=== PATIENT | female | born 1955 | race Caucasian/White ===

== ENCOUNTER 2019-01-18 10:28 | Outpatient (CLI) | payer MEDICARE ==
--- NOTE | 2019-01-18 11:30 | ULT ---
ULTRASOUND ABDOMEN: HISTORY: Epigastric pain FINDINGS: There is a new 1.6 cm cyst in the right lobe of the liver. No intrahepatic dilatation is seen. The sp london is normal measuring 10.5 cm in length. Shadowing calculi are seen in the gallbladder without gallbladder wall thickening or pericholecystic fluid. The common duct measures 5 images in diameter. The pancreas is not well visualized due to overlying bowel gas. The kidneys and visualized portions o f the aorta and IVC are normal. No free fluid is seen in the abdomen. IMPRESSION: 1. Hepatic cyst 2. Cholelithiasis
== END 2019-01-18 10:29 | disposition home or self-care (01) ==
LOC: BICULT 10:28
PROVIDERS: ATTEND Family Medicine
DX: R10.9 Unspecified abdominal pain (principal); K80.20 Calculus of gallbladder without cholecystitis without obstruction; K76.89 Other specified diseases of liver
CPT/HCPCS: 76700

== ENCOUNTER 2019-04-16 09:20 | Outpatient (CLI) | payer MEDICARE ==
[2019-04-16 10:38] LABS: #Basophils 0.1 thou/uL (0.0-0.2); #Eosinphils 0.3 thou/uL (0.0-0.7); #Lymphocytes 2.5 thou/uL (1.20-3.40); #Monocytes 0.7 thou/uL (0.11-0.59); #Neutrophils 3.6 thou/uL (1.40-6.50); %Basophils 1.3 % (0.0-1.0); %Eosinophils 3.7 % (0.0-10.0); %Monocytes 9.5 % (0.0-10.0); %Neutrophils 50.5 % (42.0-75.0); Hemoglobin 13.3 g/dL (12.0-16.0); Mean Corpuscular HGB CONC 33.2 g/dL (32.0-36.0); Mean Corpuscular Hemoglobin 28.8 pg (27.0-31.0); Mean Corpuscular Volume 86.5 fL (78.0-98.0); Mean Platelet Volume 6.5 fL (7.4-10.4); Platelet Count 368 thou/uL (130-400); RBC Distribution Width 12.3 % (11.5-14.5); Red Blood Cell (RBC) Count 4.63 mill/uL (4.20-5.40)
[2019-04-16 11:00] LABS: ALT (SGPT) 15 U/L (8-55); AST (SGOT) 15 U/L (5-34); Albumin 4.4 g/dL (3.4-4.8); Alkaline Phosphatase 115 U/L (40-150); Anion Gap 13 mmol/L (10-20); BUN (Urea Nitrogen) 11 mg/dL (9.8-20.1); Bilirubin, Total 0.3 mg/dL (0.2-1.2); Calc. Creatinine Clearance 0 mL/min (70-130); Calcium 10.2 mg/dL (7.8-10.44); Carbon Dioxide 25 mmol/L (23-31); Chloride 106 mmol/L (98-107); Estimated GFR-MDRD 85; Globulin 3.1 g/dL (2.4-3.5); Glucose 106 mg/dL (80-115); Potassium 4.7 mmol/L (3.5-5.1); Protein, Total 7.5 g/dL (6.0-8.3); Sodium 139 mmol/L (136-145)
[2019-04-16 11:01] LABS: ALT (SGPT) 16 U/L (8-55); AST (SGOT) 15 U/L (5-34); Albumin 4.3 g/dL (3.4-4.8); Alkaline Phosphatase 115 U/L (40-150); Bilirubin, Direct 0.2 mg/dL (0.1-0.3); Bilirubin, Total 0.3 mg/dL (0.2-1.2); Protein, Total 7.4 g/dL (6.0-8.3)
== END 2019-04-16 09:21 | disposition home or self-care (01) ==
LOC: LABBT 09:20
PROVIDERS: ATTEND Surgery
DX: Z01.812 Encounter for preprocedural laboratory examination (principal); K80.20 Calculus of gallbladder without cholecystitis without obstruction
CPT/HCPCS: 80053; 85025

== ENCOUNTER 2019-05-17 09:44 | Outpatient (CLI) | payer MEDICARE ==
--- NOTE | 2019-05-17 10:18 | MMO ---
Bilateral MAMMO Bilat Screen [facility]. CLINICAL HISTORY: Patient is 64 years old and is seen for screening. The patient has no family history of breast cancer. The patient has no personal history of cancer. VIEWS: The views performed were: bilateral craniocaudal with tomosynthesis and bilateral mediolateral oblique with tomosynthesis. FILMS COMPARED: The present examination has been compared to a prior imaging study performed at [facility] on 03/09/2016. This study has been interpreted with the assistance of computer-aided detection. MAMMOGRAM FINDINGS: There are scattered fibroglandular densities. There are no suspicious masses, suspicious calcifications, or new areas of architectural distortion. IMPRESSION: THERE IS NO MAMMOGRAPHIC EVIDENCE OF MALIGNANCY. A ROUTINE FOLLOW-UP MAMMOGRAM IN 1 YEAR IS RECOMMENDED. THE RESULTS OF THIS EXAM WERE SENT TO THE PATIENT. ACR BI-RADS Category 1 - Negative MAMMOGRAPHY NOTE: 1. A negative mammogram report should not delay a biopsy if a dominant of clinically suspicious mass is present. 2. Approximately 10% to 15% of breast cancers are not detected by mammography. 3. Adenosis and dense breasts may obscure an underlying neoplasm. Reported by: MOE YOST MD Electonically Signed: [id number]
== END 2019-05-17 09:45 | disposition home or self-care (01) ==
LOC: BICMAMMO 09:44
PROVIDERS: ATTEND Family Medicine
DX: Z12.31 Encounter for screening mammogram for malignant neoplasm of breast (principal)
CPT/HCPCS: 77063; 77067

== ENCOUNTER 2019-10-17 06:46 | Outpatient (CLI) | payer MEDICARE ==
[2019-10-17 15:21] LABS: Hemoglobin 13.8 g/dL (12.0-16.0); Mean Corpuscular HGB CONC 32.9 g/dL (32.0-36.0); Mean Corpuscular Hemoglobin 28.9 pg (27.0-31.0); Mean Corpuscular Volume 87.7 fL (78.0-98.0); Mean Platelet Volume 6.6 fL (7.4-10.4); Platelet Count 367 thou/uL (130-400); RBC Distribution Width 12.5 % (11.5-14.5); Red Blood Cell (RBC) Count 4.79 mill/uL (4.20-5.40); White Blood Cell (WBC) Count 10.2 thou/uL (4.8-10.8)
[2019-10-17 15:25] LABS: Bacteria/HPF None Seen HPF (None Seen); Bilirubin Negative (Negative); Blood, Urine 2+ (Negative); Clarity Clear (Clear); Glucose, Urine (Dipstick) Normal (Negative); Leukocyte 75 Leu/uL (Negative); Nitrite Negative (Negative); Protein, Urine (Dipstick) Negative (Neg-Trace); RBC/HPF 0-3 HPF (0-3); Squamous Epithelial 0-3 HPF (0-3); Urobilinogen Normal mg/dL (Less than 2); WBC/HPF 0-3 HPF (0-3)
[2019-10-17 15:27] LABS: INR-International Normal Ratio 1.1; Prothrombin Time 14.2 SEC (12.0-14.7)
[2019-10-17 15:28] LABS: PTT 32.2 SEC (22.9-36.1)
[2019-10-17 15:47] LABS: Anion Gap 16 mmol/L (10-20); BUN (Urea Nitrogen) 10 mg/dL (9.8-20.1); Calc. Creatinine Clearance 0 mL/min (70-130); Carbon Dioxide 21 mmol/L (23-31); Chloride 107 mmol/L (98-107); Estimated GFR-MDRD Greater than 90; Glucose 92 mg/dL (80-115); Potassium 4.2 mmol/L (3.5-5.1); Sodium 140 mmol/L (136-145)
--- NOTE | 2019-10-18 16:53 | EKG ---
Test Reason : Blood Pressure : / mmHG Vent. Rate : 079 BPM Atrial Rate : 079 BPM P-R Int : 154 ms QRS Dur : 082 ms QT Int : 400 ms P-R-T Axes : 055 056 029 degrees QTc Int : 458 ms Normal sinus rhythm Anterior infarct , age undetermined cannot be excluded Abnormal ECG Confirmed by JOHANNA ROSARIO ([id number]) on 10/18/2019 4:53:32 PM Referred By: ISHAAN Confirmed By:JOHANNA ROSARIO
== END 2019-10-17 06:47 | disposition home or self-care (01) ==
LOC: LABBT 06:46
PROVIDERS: ATTEND Urology
DX: Z01.818 Encounter for other preprocedural examination (principal); C67.0 Malignant neoplasm of trigone of bladder
CPT/HCPCS: 80048; 81001; 85027; 85610; 85730; 87086; 93005; 93010

== ENCOUNTER 2019-10-25 06:17 | Day surgery (SDC) | payer MEDICARE ==
[2019-10-17 14:13] VITALS: BMI 38.2
[2019-10-25] MEDS ORDERED: Levofloxacin 500 mg/D5W 100 ml Premix Bag ONE (06:52)
[2019-10-25] MEDS ORDERED: Midazolam HCl 2 mg/2 ml Vial ONE (07:20)
[2019-10-25] MEDS ORDERED: Fentanyl 100 MCG/2 ML VIAL ONE (07:20)
[2019-10-25] MEDS ORDERED: Iothalamate Meglumine 60% 50 ML VIAL FS ONE (07:21)
[2019-10-25] MEDS ORDERED: B & O ONE (07:23)
[2019-10-25] MEDS ORDERED: mitoMYcin 40 MG in Sterile Water 20 ML IV SCH (08:00)
[2019-10-25] MEDS ORDERED: SUGAMMADEX SODIUM 200 MG/2 ML VIAL ONE (09:09)
--- NOTE | 2019-10-25 09:37 | OP ---
DATE OF PROCEDURE: 10/25/2019 SERVICE: Urology. PREOPERATIVE DIAGNOSIS: Bladder cancer. POSTOPERATIVE DIAGNOSIS: Bladder cancer. PROCEDURES PERFORMED: 1. Transurethral resection of bladder tumor with right ureteral stent placement, 6 x 24 double-J stent. 2. Postoperative mitomycin-C placement. INDICATIONS FOR PROCEDURE: Ms. Meredith is a 64-year-old white female who initially presented with hematuria. Cystoscopy demonstrated a mass within the bladder, which was directly over the right ureteral orifice, which could not be visualized on outpatient cystoscopy. I recommended resection of the tumor and possible right ureteral stent placement. All risks and benefits discussed and she has agreed to proceed forward. DESCRIPTION OF PROCEDURE: After identification of armband and verification of consent, the patient was brought back to the operating room where she underwent general anesthesia with endotracheal intubation and full paralysis. She was then placed in dorsal lithotomy position and prepped and draped in the usual sterile fashion. After appropriate time-out, a lubricated 26[place]izen [place] resectoscope sheath with visual obturator was placed with ease into the urethra. The tumor was visualized and identification of the ureteral orifice was still not possible. The visual obturator was switched out for the bipolar bladder resectoscope loop and resection was started on the bladder tumor at the top and resected down until the entire tumor was resected. Upon completion of resection, the ureter was identified and was noted to be partially resected on the anterior aspect. Therefore, a ureteral stent would be required in this case. Hemostasis was performed on all areas except directly next to the ureteral orifice to avoid cautery and scarring. Once the tumor base looked very good and was completely dry without any evidence of bleeding, the tumor specimens were removed and the resectoscope was removed as well with placement of a 22-Citizen [place] rigid cystoscope. Using a Sensor wire, the ureteral orifice was identified and cannulated with the floppy tip of the Sensor wire up to the level of the renal pelvis. A 6 x 24 double-J stent with no string attached was advanced over the Sensor wire up to the level of renal pelvis and the wire removed, leaving a good curl in the kidney and a good curl in the bladder. The bladder was then emptied and the cystoscope was removed. An 18-Citizen [place] Wei catheter was then placed in the patient's bladder with 10 mL of sterile water into the balloon, 40 mg of mitomycin-C and 20 mL of H2O were then placed into the patient's bladder via the Wei catheter and the catheter plugged. The catheter was left in place with a catheter plug and the B and O suppository was placed in the patient's rectum. The patient was then taken out of positioning, awakened, and taken to PACU for recovery in stable condition. COMPLICATIONS: None. ESTIMATED BLOOD LOSS: Minimal. RETAINED TUBES AND DRAINS: A 6 x 26 double-J stent on the right and an 18-Citizen [place] Wei catheter with mitomycin-C in the bladder. SPECIMENS: Bladder tumor. DISPOSITION: The patient will keep the mitomycin-C in for approximately 45 minutes to an hour, at which point we will plan to remove the mitomycin-C in the catheter. The patient will need to undergo a void trial and then will be discharged home with followup in approximately 2 weeks for cystoscopy and stent removal. Job ID: [id number]
[2019-10-25] MEDS ORDERED: Oxybutynin 5 MG TAB ONE (09:54)
[2019-10-25] MEDS ORDERED: Ondansetron PF 4 MG/2 ML Vial ONE (10:50)
[2019-10-25] MEDS ORDERED: Rocuronium Bromide 10 MG/ML (10ML VIAL) ONE (10:50)
[2019-10-25] MEDS ORDERED: Dexamethasone 20 MG/5 ML VIAL ONE (10:50)
[2019-10-25] MEDS ORDERED: diphenhydrAMINE 50 MG/ML VIAL ONE (10:50)
[2019-10-25] MEDS ORDERED: PHENYLEPHRINE-NS 100 MCG/ML 10 ML SYRINGE ONE (10:50)
[2019-10-25] MEDS ORDERED: PROPOFOL 200 MG/20 ML VIAL ONE (10:50)
--- NOTE | 2019-10-30 06:02 | PQF ---
[facility] POST DISCHARGE CLINICAL DOCUMENTATION IMPROVEMENT CLARIFICATION FORM l Todays Date: 10/30/19 l Patients Name ELIZA CRANDALL l l Admit Date 10/25/19 l Disch Date 10/25/19 Trauma Therapist Name Karthikeyan Katz Email: [email or web address] Cell: [phone] To be completed by Trauma Therapist: Present Clinical Indicators - Signs / Symptoms Results and Location in Medical Record [ ] Documentation of: [ ] [ ] Documentation of: [ ] [ ] Documentation of: [ ] [ ] Documentation of: [ ] [ ] Risks [ ] [ ] [ ] Treatment [ ] Papillary urothelial carcinoma of bladder trigone Query for the size of resected bladder tumor [ ] [ ] To be completed by Physician: DANILO TORRES The documentation in this patients record requires clarification to ensure coding compliance and accuracy. Check the appropriate box and include in your discharge summary. [X] Tumor size resected was about 3 cm [ ] [ ] [ ] Please check this box if this does not apply to this patient [ ] Unable to determine [ ] Other diagnosis: Review the following information and exercise your independent professional judgment in responding to the clarification. Based upon the clinical findings, risk factors, and treatment, please clarify if you are treating one of the above probable or suspected diagnoses. Physician Signature: Danilo Bolton Date____10/31/19____ Time____17: 11 MTDD
== END 2019-10-25 11:25 | disposition home or self-care (01) ==
LOC: SDC 06:17
PROVIDERS: ATTEND Urology
PROC: 0T5B8ZZ Destruction of Bladder, Via Natural or Artificial Opening Endoscopic (ICD-10-PCS; principal; 2019-10-25)
PROC: 0T768DZ Dilation of Right Ureter with Intraluminal Device, Via Natural or Artificial Opening Endoscopic (ICD-10-PCS; 2019-10-25)
DX: C67.0 Malignant neoplasm of trigone of bladder (principal); E78.5 Hyperlipidemia, unspecified; I10 Essential (primary) hypertension; E66.01 Morbid (severe) obesity due to excess calories; Z68.38 Body mass index [BMI] 38.0-38.9, adult; Z87.891 Personal history of nicotine dependence; Z79.899 Other long term (current) drug therapy; Z88.5 Allergy status to narcotic agent
CPT/HCPCS: 52234; 52332; 88307; C1769; J9280; 74420; 88305; J1100; J1200; J1956; J2250; J2405; J2704; J3010

== ENCOUNTER 2019-12-27 09:26 | Outpatient (CLI) | payer MEDICARE ==
--- NOTE | 2019-12-27 13:57 | ULT ---
RENAL ULTRASOUND: INDICATION: History of malignant neoplasm of the trigone of the bladder. COMPARISON: None. FINDINGS: The right kidney measured 10.2 x 4.9 x 4.8 cm. The left kidney measures 11.2 x 5.8 x 5.3 cm. No foc al renal lesion or hydronephrosis is evident. Prevoid bladder volume is 359 cc. Postvoid bladder vo lume was 21 cc. Voided volume was 337 cc. Area of shadowing is seen within the anterior inferior as pect of the bladder which may reflect sequelae of prior surgery or instrumentation involving the lowe r pelvic wall. This is not well evaluated on the current examination. IMPRESSION: 1. No focal renal lesion or hydronephrosis. Mild residual seen on the postvoid bladder images. 2. Nonspecific shadowing along the anterior inferior aspect of the pelvis, adjacent to the bladder m argin. This may reflect postoperative change. Correlation with pelvic radiographs or CT may be help ful. POS: PRIYA
== END 2019-12-27 09:27 | disposition home or self-care (01) ==
LOC: SCSULT 09:26
PROVIDERS: ATTEND Urology
DX: C67.0 Malignant neoplasm of trigone of bladder (principal); Z98.890 Other specified postprocedural states
CPT/HCPCS: 76770

== ENCOUNTER 2020-02-18 14:31 | Outpatient (CLI) | payer MEDICARE ==
--- NOTE | 2020-02-18 15:42 | CT ---
EXAM: CT chest without contrast per low-dose cancer screening protocol HISTORY: History of smoking and nicotine dependence; the patient has smoked a 60 pack-year smoking hi story COMPARISON: None TECHNIQUE: Multiple contiguous axial images were obtained in a CT of the chest without contrast per l ow-dose cancer screening protocol. Sagittal and coronal reformats were performed. FINDINGS: Pulmonary nodules: There is a 1.8 cm spiculated mass in the lingula. A 3 mm peripheral nodule is seen in the right lower lobe on image 92 of 165.. No focal infiltrates are seen. Pleural space: No pneumothorax or pleural effusion are seen. Heart: The heart is normal in size. Calcic lesions are seen in the coronary arteries. Mediastinum: No hilar or mediastinal lymphadenopathy appreciated on this limited noncontrast examinat ion. There is a moderate hiatal hernia. Bones: Degenerative changes in the spine.. Visualized subdiaphragmatic structures: Status post cholecystectomy.. IMPRESSION: Lung RADS category 4B-highly suspicious. A PET CT should be performed to evaluate for hypermetabolic activity within the lingular nodule.
== END 2020-02-18 14:32 | disposition home or self-care (01) ==
LOC: BICCT 14:31
PROVIDERS: ATTEND Family Medicine
DX: Z12.2 Encounter for screening for malignant neoplasm of respiratory organs (principal); Z87.891 Personal history of nicotine dependence; R91.1 Solitary pulmonary nodule
CPT/HCPCS: G0297

== ENCOUNTER 2020-03-25 09:49 | Outpatient (CLI) | payer MEDICARE ==
--- NOTE | 2020-03-25 11:49 | PET ---
EXAM: PET/CT HISTORY: Left lung pulmonary nodule; history of bladder cancer TECHNIQUE: PET scanning with CT attenuation correction was performed from the base of the brain to the proximal thighs following the intravenous administration of 11.3 millicuries [id number]. COMPARISON: CT pulmonary scan dated February 18, 2020 FINDINGS: Biodistribution:The biodistribution for the exam appears acceptable. Head and neck: There is appropriate background activity within the brain. No hypermetabolic lymphaden opathy or masses identified. Thorax: There is hypermetabolic activity associated with the suspicious pulmonary nodule in the lingu la. The peak activity associated with this lesion is 5.1 and a mean activity 3.72. The lesion measures approximately 1.6 cm. There is a hypermetabolic left axillary lymph node measuring 1.2 cm wi th a peak activity of 2.42 and a mean activity 1.92. Abdomen and pelvis: There is expected background activity within the GI and systems. The gallbladder surgically absent. There is a moderate size hiatal hernia. There are moderate vascula r calcifications seen involving the visualized vasculature. Osseous structures and skin: No hypermetabolic skin or osseous lesion is identified. There is a left total hip replacement. IMPRESSION: Abnormal PET/CT. 1. Hypermetabolic 1.6 cm lingular pulmonary nodule is suspicious for primary lung malignancy. 2. Enlarged, mildly hypermetabolic left axillary lymph node is suspicious for regional lymph node spr ead.
== END 2020-03-25 09:50 | disposition home or self-care (01) ==
LOC: PET 09:49
PROVIDERS: ATTEND Family Medicine
DX: R91.8 Other nonspecific abnormal finding of lung field (principal); R59.0 Localized enlarged lymph nodes; R94.8 Abnormal results of function studies of other organs and systems
CPT/HCPCS: 78815; A9552

== ENCOUNTER 2020-09-05 09:24 | Outpatient (CLI) | payer MEDICARE ==
[2020-09-05 10:02] LABS: Estimated GFR-MDRD - POC Greater than 90
--- NOTE | 2020-09-05 11:05 | CT ---
Exam: Chest CT with contrast Abdomen CT with and without contrast Pelvic CT with and without contrast HISTORY: Bladder cancer. Left lung nodule. COMPARISON: Chest CT 02/18/2020. CORRELATION: PET imaging 03/25/2020. FINDINGS: Chest CT: No mediastinal mass, lymphadenopathy or hematoma. Heart: Normal size. No significant pericardial fluid. Minimal coronary artery calcifications. Aorta: Normal caliber. No periaortic fat stranding. Trachea and central bronchi are patent. Pleural effusion: None. Pneumothorax: None. Right lung: No mass, consolidation or contusion. Left lung: Redemonstration of a spiculated mass in the lingula measuring 2.1 x 1.6 cm, previously moni suring 1.3 x 1.8 cm. No additional left lung nodules. Additional findings: Stable upper normal left axillary lymph node, measuring 1.3 x [address] with and without contrast: Moderate hiatal hernia is identified. Limited evaluation of the alimentary canal by the lack of oral contrast. No evidence of a bowel obstruction. Normal ileocecal junction. Normal caliber appendix. Subcentimeter hypodensities in the liver are once again demonstrated. Lesions are too small to charac terize but are statistically favored to be cysts. Stable atrophy of the pancreas. Spleen and adrenal glands have appropriate attenuation and enhancement. No gastrohepatic, retrocrural or periportal lymphadenopathy. No mesenteric mass, lymphadenopathy, free air or free fluid. Kidneys: Noncontrast images demonstrate no evidence of nephrolithiasis or perinephric fat stranding. Arterial phase images demonstrate symmetric enhancement of the kidneys. No enhancing masses. Delayed images demonstrate symmetric excretion into a decompressed intrarenal and extrarenal collecti ng system. No filling defects. Pelvic CT with and without contrast: Limited evaluation due to beam attenuation artifact from a left hip arthroplasty. No pelvic mass, lym phopathy, free air or free fluid. No obvious bladder mucosal abnormality. Delayed images demonstrate contrast in the dependent portion of the urinary bladder. No lytic or blastic lesions within the osseous structures. IMPRESSION: 1. Enlarging spiculated nodule in the lingula, worrisome for malignancy/metastases. 2. Stable enlarged left axillary lymph node. 3. No evidence of obstructive uropathy or masses in the left or right intrarenal/extrarenal collectin g system including the urinary bladder. Evaluation of the bladder is limited due to beam attenuation artifact from left hip arthroplasty. Transcribed Date/Time: 09/05/2020 11:16 AM
[2020-09-05] MEDS ORDERED: Iopamidol-370 76% 500 ML 1 ML ONE (13:21)
== END 2020-09-05 09:25 | disposition home or self-care (01) ==
LOC: BICCT 09:24
PROVIDERS: ATTEND Urology
DX: C67.0 Malignant neoplasm of trigone of bladder (principal); C34.32 Malignant neoplasm of lower lobe, left bronchus or lung; R91.1 Solitary pulmonary nodule; R59.0 Localized enlarged lymph nodes
CPT/HCPCS: 71260; 74178; 82565; Q9967

== ENCOUNTER 2021-12-23 11:39 | Outpatient (CLI) | payer MEDICARE | END 2021-12-23 11:40 | disposition home or self-care (01) | LOC: BICRAD 11:39 | PROVIDERS: ATTEND Family Medicine | DX: R06.02 Shortness of breath (principal); K44.9 Diaphragmatic hernia without obstruction or gangrene | CPT/HCPCS: 71046 ==